=== PATIENT | female | born 1975 | race Two or more races ===

== ENCOUNTER 2016-04-13 17:08 | Emergency (ER) | payer MEDICAID, OTHER ==
[2016-04-13 17:19] VITALS: TEMP 99.5; BMI 28.9
[2016-04-13] MEDS ORDERED: ONDANSETRON HCL 4 MG/2 ML VIAL IV ONE (18:33)
[2016-04-13] MEDS ORDERED: NS 1,000 ML IV ONE (18:33)
[2016-04-13] MEDS ORDERED: MORPHINE 4 MG/ML INJECTION IV ONE (18:33)
[2016-04-13 18:35] LABS: LEUKOCYTES/URINE 2+ (NEGATIVE); NITRITE/URINE NEG (NEGATIVE); RBC/URINE 0-2 (0-5); URINE OCCULT BLOOD NEG (NEG/TRACE)
[2016-04-13 18:41] LABS: AUTOMATED BASOPHIL 0.5 % (0-2); AUTOMATED EOSINOPHIL 5.1 % (0-5); AUTOMATED LYMPH 19.3 % (17-44); AUTOMATED MONOCYTE 6.2 % (3-10); AUTOMATED NEUTROPHIL 68.9 % (45-76); MPV 8.4 fL (7.4-10.4)
--- NOTE | 2016-04-13 18:58 | EDPRACDOC ---
- General Information Chief Complaint: Abdominal Pain Stated Complaint: LT UPPER ABD PAIN Time Seen by Provider: 04/13/16 18:18 Information Source: Patient Mode Of Arrival: Car Home Medications: Home Medications Ciprofloxacin HCl [Cipro] 500 mg PO BID #20 tab 04/13/16 Metformin HCl [Metformin HCl ER] 500 mg PO QHS 04/13/16 Metronidazole [Flagyl] 500 mg PO TID #30 tab 04/13/16 Multivitamin [One Daily Essential] 1 tab PO DAILY 04/13/16 Oxycodone Immediate Release [Oxycodone Immediate Release (OxyIR)] 5 mg PO Q6H PRN #20 tab 04/13/16 Allergies/Adverse Reactions: Allergies Allergy/AdvReac Type Severity Reaction Status Date / Time No Known Allergies Allergy Verified 04/13/16 17:22 - History of Present Illness Onset: 1 DAY HPI: PT PRESENTS WITH LEFT UPPER QUADRANT PAIN FOR THE LAST SEVERAL DAYS. PT STATES THE PAIN IS SHARP, STABBING PAIN. STATES THE PAIN IS WORSENED WITH MOVEMENT AND BENDING OVER. STATES NOTHING MAKES THE PAIN BETTER. PT DENIES FEVER, CHILLS, NAUSEA OR VOMITING. PT DX WITH DIABETES 3 MONTHS AGO AND STARTED ON METFORMIN. NO OTHER PMH. Pain Location: Reports: LUQ Pain Context: Reports: Spontaneous Pain Severity: Moderate Pain Quality: Reports: Sharp, Stabbing Pain Radiation: Reports: No Radiation Last Menstrual Period: 3 WEEKS : No Adult Abdominal History: Denies: Urolithiasis, Bowel Obstruction Female Abdominal History: Denies: UTI, Ectopic, PID, Urolithiasis Modifying Factors: improves with: Nothing Female Associated Signs & Symptoms: Denies: Nausea, Frequency, Vaginal Bleeding , Vomiting, Hematemesis, Anorexia, Diarrhea, Melena, Dysuria, Fever, Urgency, Hematuria, Chills, Vaginal Discharge, Other Oral Intake: Normal Urinary Output: Normal ED Past Medical History - History Reviewed Yes Nurses notes reviewed and agree except as marked - Patient Medical History GI/ History: Denies: Urinary Tract Infection Psychological History: Denies: Depression, Substance Use Disorder Surgical History: Reports: Other (right knee ACL repair.). Denies: Hysterectomy - Family Medical History Reports: Cardiac Disorders (grandmother) - Social Medical History Smoking Status: Never smoker Social History: Denies: Amphetamine Use, Barbiturate Use, Benzodiazipine Use, Cocaine Use, Heroin Use, Marijuana Use, Methadone Use, MDMA (Ecstasy) Use, Substance Use Disorder EDM Review of Systems - Review of Systems ROS Negative Except as Marked: Yes All systems reviewed and were negative except as marked - Physical Exam Constitutional: Alert Oriented to: Time, Person, Place Last recorded Vital Signs: Last Vital Signs Temp 99.5 F 04/13/16 17:14 Pulse 83 04/13/16 17:14 Resp 20 04/13/16 17:14 BP 131/78 04/13/16 17:14 Pulse Ox 99 04/13/16 17:14 Oxygen Pulse Oxygen Saturation 99 O2 Device Room Air Oxygen Flow Rate Fraction of Inspired Oxygen ( FIO2) - HEENT Head: Normal ( normocephalic) Eye Exam: Normal (PERRL, EOMI, Sclera white) Oropharynx: Normal (Pharynx:Moist without exudate,Gums-no swelling) Nose: No Symptoms Reported (septum midline) Neck: Normal (FROM, trachea at midline) - Respiratory/Cardiovascular Respiratory: Normal - CTA (BBS clear to auscultation without adventitious sounds ) Cardiovascular: Normal (RRR without murmur, gallop or rub) - GI Auscultation: Normal (NABS) Palpation: Normal (Soft,No rebound or guarding, non distended) Tenderness: Moderate, LUQ Lopez's Sign: Negative Rectal Exam: Deferred - Musculoskeletal Back: Normal (Non-Tender) Extremities: Normal (Normal tone, Pulses 2+ No cyanosis or edema, FROM) - Integumentary Skin: Normal, Warm, Dry Lymphatics: Normal (no adenopathy) - Neurologic Memory Impaired: Normal Motor Function: Normal (Normal tone, Pulses 2+ No cyanosis or edema, FROM) Cranial Nerve: Normal (CN II-X11 intact sensation, strength 5/5) Cerebellar: Normal Mood Description: Normal Perception: Normal - Differential Diagnosis Diverticulitis, Pancreatitis, Other - Results All Results Reviewed and Normal except as Highlighted below: Yes 04/13/16 18:27 04/13/16 18:27 WBC 15.9 xk/uL (3.8-10.8) H 04/13/16 18:27 RBC 4.78 xM/uL (4.20-5.40) 04/13/16 18:27 Hgb 12.8 g/dL (12.0-16.0) 04/13/16 18:27 Hct 38.6 % (36-47) 04/13/16 18:27 MCV 81 fL (81-99) 04/13/16 18:27 MCH 26.8 pg (27-32) L 04/13/16 18:27 MCHC 33.1 g/dl (33-36) 04/13/16 18:27 RDW 14.5 % (11.5-14.5) 04/13/16 18:27 Plt Count 410 xk/uL (130-400) H 04/13/16 18:27 MPV 8.4 fL (7.4-10.4) 04/13/16 18:27 Neut % (Auto) 68.9 % (45-76) 04/13/16 18: Lymph % (Auto) 19.3 % (17-44) 04/13/16 18:27 Harmon % (Auto) 6.2 % (3-10) 04/13/16 18:27 Eos % (Auto) 5.1 % (0-5) H 04/13/16 18:27 Baso % (Auto) 0.5 % (0-2) 04/13/16 18:27 Absolute Neuts (auto) 10.81 xk/uL (1.7-8.2) H 04/13/16 18:27 Absolute Lymphs (auto) 3.02 xk/uL (0.65-4.75) 04/13/16 18:27 Sodium 141 mEq/L (137-146) 04/13/16 18:27 Potassium 4.0 mEq/L (3.5-5.1) 04/13/16 18: Chloride 100 mEq/L (98-107) 04/13/16 18:27 Carbon Dioxide 29 mMOL/L (22-33) 04/13/16 18:27 Anion Gap 16 mEq/L (8-16) 04/13/16 18:27 BUN 8 MG/DL (7-17) 04/13/16 18:27 Creatinine 0.70 MG/DL (0.52-1.04) 04/13/16 18:27 Estimated GFR (MDRD) > 60 mL/min (>=60) 04/13/16 18:27 Glucose 90 mg/dL (70-99) 04/13/16 18:27 Calculated Osmolality 269 MOs/Kg (270-290) L 04/13/16 18:27 Lactic Acid 1.1 mEq/L (0.7-2.1) 04/13/16 18:46 Calcium 9.4 MG/DL (8.4-10.2) 04/13/16 18:27 Total Bilirubin 0.7 MG/DL (0.2-1.3) 04/13/16 18:27 AST 33 IU/L (14-36) 04/13/16 18:27 ALT 40 IU/L (9-52) 04/13/16 18:27 Alkaline Phosphatase 103 IU/L (38-126) 04/13/16 18:27 Total Protein 8.5 G/DL (6.3-8.2) H 04/13/16 18:27 Albumin 4.7 G/DL (3.5-5.0) 04/13/16 18:27 Lipase 51 U/L (23-300) 04/13/16 18:27 Urine Color Yellow 04/13/16 17:20 Urine Clarity Clear 04/13/16 17:20 Urine pH 8.0 (5.0-8.0) 04/13/16 17:20 Ur Specific [place] 1.005 (1.003-1.035) 04/13/16 17:20 Urine Protein Neg (NEG/TRACE) 04/13/16 17:20 Urine Glucose (UA) Neg (NEGATIVE) 04/13/16 17:20 Urine Ketones Neg (NEGATIVE) 04/13/16 17:20 Urine Occult Blood Neg (NEG/TRACE) 04/13/16 17:20 Urine Nitrite Neg (NEGATIVE) 04/13/16 17:20 Urine Bilirubin Neg (NEGATIVE) 04/13/16 17:20 Urine Urobilinogen <2.0 MG/DL (0-1) 04/13/16 17:20 Ur Leukocyte Esterase 2+ (NEGATIVE) H 04/13/16 17:20 Urine RBC 0-2 (0-5) 04/13/16 17:20 Urine WBC 2-5 (0-5) 04/13/16 17:20 Ur Epithelial Cells 2+ 04/13/16 17:20 Urine Bacteria Few (NEG/FEW) 04/13/16 17:20 Urine Test Neg (NEGATIVE) 04/13/16 17:20 Lab Results 04/13/16 04/13/16 04/13/16 18:46 18:27 18:27 WBC 15.9 H RBC 4.78 Hgb 12.8 Hct 38.6 MCV 81 MCH 26.8 L MCHC 33.1 RDW 14.5 Plt Count 410 H MPV 8.4 Neut % (Auto) 68.9 Lymph % (Auto) 19.3 Harmon % (Auto) 6.2 Eos % (Auto) 5.1 H Baso % (Auto) 0.5 Absolute Neuts (auto) 10.81 H Absolute Lymphs (auto) 3.02 Sodium 141 Potassium 4.0 Chloride 100 Carbon Dioxide 29 Anion Gap 16 BUN 8 Creatinine 0.70 Estimated GFR (MDRD) > 60 Glucose 90 Calculated Osmolality 269 L Lactic Acid 1.1 Calcium 9.4 Total Bilirubin 0.7 AST 33 ALT 40 Alkaline Phosphatase 103 Total Protein 8.5 H Albumin 4.7 Lipase 51 Urine Color Urine Clarity Urine pH Ur Specific [place] Urine Protein Urine Glucose (UA) Urine Ketones Urine Occult Blood Urine Nitrite Urine Bilirubin Urine Urobilinogen Ur Leukocyte Esterase Urine RBC Urine WBC Ur Epithelial Cells Urine Bacteria Urine Test 04/13/16 04/13/16 17:20 17:20 WBC RBC Hgb Hct MCV MCH MCHC RDW Plt Count MPV Neut % (Auto) Lymph % (Auto) Harmon % (Auto) Eos % (Auto) Baso % (Auto) Absolute Neuts (auto) Absolute Lymphs (auto) Sodium Potassium Chloride Carbon Dioxide Anion Gap BUN Creatinine Estimated GFR (MDRD) Glucose Calculated Osmolality Lactic Acid Calcium Total Bilirubin AST ALT Alkaline Phosphatase Total Protein Albumin Lipase Urine Color Yellow Urine Clarity Clear Urine pH 8.0 Ur Specific [place] 1.005 Urine Protein Neg Urine Glucose (UA) Neg Urine Ketones Neg Urine Occult Blood Neg Urine Nitrite Neg Urine Bilirubin Neg Urine Urobilinogen <2.0 Ur Leukocyte Esterase 2+ H Urine RBC 0-2 Urine WBC 2-5 Ur Epithelial Cells 2+ Urine Bacteria Few Urine Test Neg Decision Time to Discharge: 19:53 - Departure Disposition: Home Condition: Stable Final Diagnosis: Diverticulitis Qualifiers: Diverticulitis site: unspecified part of intestinal tract Diverticulitis bleeding: without bleeding Diverticulitis complication: without perforation or abscess Qualified Code(s): K57.92 - Diverticulitis of intestine, part unspecified, without perforation or abscess without bleeding Instructions: Diverticulitis (ED), Diverticulitis Diet (ED) Education/Counseling Given To: Patient Education/Counseling Given Regarding: Diagnosis, Treatment, Prognosis, Follow Up Referrals: Freddy Sigala MD [Primary Care Provider] - One Week Prescriptions: New Ciprofloxacin HCl [Cipro] 500 mg PO BID #20 tab Metronidazole [Flagyl] 500 mg PO TID #30 tab Oxycodone Immediate Release [Oxycodone Immediate Release (OxyIR)] 5 mg PO Q6H PRN #20 tab PRN Reason: Pain No Action Metformin HCl [Metformin HCl ER] 500 mg PO QHS Multivitamin [One Daily Essential] 1 tab PO DAILY Forms: Excuse Note Additional Instructions: INCREASE FLUID INTAKE. FOLLOW UP WITH PRIMARY CARE PROVIDER NEXT WEEK. TAKE ALL ANTIBIOTICS PRESCRIBED. RETURN TO THE ED FOR WORSENING SYMPTOMS OR CONCERNS.
[2016-04-13 18:59] LABS: BLOOD UREA NITROGEN 8 MG/DL (7-17); CALCIUM 9.4 MG/DL (8.4-10.2); CALCULATED OSMOLALITY 269 MOs/Kg (270-290); CHLORIDE 100 mEq/L (98-107); GLUCOSE 90 mg/dL (70-99); SODIUM LEVEL 141 mEq/L (137-146); TOTAL PROTEIN 8.5 G/DL (6.3-8.2)
[2016-04-13] MEDS ORDERED: Pharmacy Review for Metformin - IV Contrast Given SCH (19:00)
--- NOTE | 2016-04-13 19:51 | DIRPT ---
CLINICAL DATA: Acute left flank pain. EXAM: CT ABDOMEN AND PELVIS WITH CONTRAST TECHNIQUE: Multidetector CT imaging of the abdomen and pelvis was performed using the standard protocol following bolus administration of intravenous contrast. CONTRAST: 100 mL of Isovue 370 intravenously. COMPARISON: CT scan of January 07, 2015. FINDINGS: Visualized lung bases are unremarkable. No significant osseous abnormality is noted. No gallstones are noted. The liver, spleen and pancreas are unremarkable. Adrenal glands and kidneys appear normal. No hydronephrosis or renal obstruction is noted. No renal or ureteral calculi are noted. The appendix appears normal. There is no evidence of bowel obstruction. Focal diverticulitis of the distal descending colon is noted without abscess formation. Urinary bladder and uterus appear normal. Bilateral ovarian cysts are noted. No significant adenopathy is noted. IMPRESSION: Focal diverticulitis of the distal descending colon without abscess formation. Electronically Signed By: Román Mirza Jr, M.D. On: 04/13/2016 19:48
[2016-04-13] MEDS ORDERED: OXYCODONE HCL 5 MG TABLET PO ONE (19:57)
[2016-04-13] MEDS ORDERED: CIPROFLOXACIN HCL 500 MG TAB PO ONE (19:57)
[2016-04-13] MEDS ORDERED: METRONIDAZOLE 500 MG TAB PO ONE (19:57)
[2016-04-13 20:38] VITALS: BP 124/74; PULSE 89
== END 2016-04-13 20:37 | disposition home or self-care (01) ==
LOC: ED 17:08
DX: K57.92 Diverticulitis of intestine, part unspecified, without perforation or abscess without bleeding (principal)
CPT/HCPCS: 36415; 74177; 80053; 81001; 81025; 83605; 83690; 85025; 96361; 96374; 96375; 99283; A9698; J2270; J2405; J3490